=== PATIENT | male | born 1960 | race Two or more races ===

== ENCOUNTER 2022-06-26 07:04 | Day surgery (SDC) | payer BC ==
[2022-06-26] VITALS (10 sets, daily range): BP systolic 128–149; BP diastolic 45–90
[~2022-06-26] VITALS: Ht 185.4 cm; Wt 132.9 kg
[~2022-06-26 07:04] MED LIST: AMLO-496 PO; ASCO500T11 PO; ASPI-498 PO; ATOR20TA50 PO; CANA300T OR; CARV25TA55 PO; CHOL20007 PO; CYAN1TAB11 PO; LOSA100T33 PO; METF-370 PO; OMEG100078 PO; POM; TAMS0.4C36 PO; VITA400T4 PO
[2022-06-26] MEDS ORDERED: IODIXANOL 320MG/ML 100ML BTL IV ONE (07:40)
[2022-06-26] MEDS ORDERED: LIDOCAINE 2%HCL (LOCAL ANESTH.) INJ 10ml MDV ONE (07:41)
[2022-06-26] MEDS ORDERED: HEPARIN SODIUM (PORCINE) 5000 UNITS/ML 1ML VIAL ONE (07:48)
[2022-06-26] MEDS ORDERED: ANGIOMAX 250 MG VIAL IV ONE (07:48)
[2022-06-26] MEDS ORDERED: fentaNYL CITRATE 100 MCG/2 ML VL ONE (07:49)
[2022-06-26] MEDS ORDERED: SODIUM CHL 0.9% 50 ML ONE (07:49)
[2022-06-26] MEDS ORDERED: VERAPAMIL 2.5MG/ML INJ 2ML VIAL IV ONE (07:49)
[2022-06-26] MEDS ORDERED: MIDAZOLAM HCL 2MG/2ML 2ml VIAL (1mg/ml) ONE (07:49)
== END 2022-06-26 10:50 | disposition home or self-care (01) ==
LOC: CATH 07:04
PROVIDERS: ATTEND Internal Medicine
DX: I25.118 Atherosclerotic heart disease of native coronary artery with other forms of angina pectoris (principal); R94.39 Abnormal result of other cardiovascular function study; Z20.822 Contact with and (suspected) exposure to COVID-19; I10 Essential (primary) hypertension; E78.5 Hyperlipidemia, unspecified; E11.9 Type 2 diabetes mellitus without complications; Z79.4 Long term (current) use of insulin; Z79.899 Other long term (current) drug therapy
CPT/HCPCS: 93458; C1769; C1894; J1644; J2001; J2250; J3010; J7030; Q9967; U0003